=== PATIENT | male | born 1950 | race Caucasian/White ===

== ENCOUNTER 2017-07-25 19:55 | Emergency (ER) | payer MEDICARE, OTHER ==
[2017-07-25] MEDS ORDERED: GLUCAGON,HUMAN RECOMB 1 MG INJ IV ONE (20:11)
--- NOTE | 2017-07-25 23:50 | RADIOLOGY REPORT (SQ) ---
EXAM DESCRIPTION: BARIUM SWALLOW ESOPHAGUS COMPLETED DATE/TIME: 07/25/2017 11:22 pm REASON FOR STUDY: foreign body COMPARISON: None. TECHNIQUE: Under fluoroscopic guidance, patient ingested thin barium. Fluoroscopic spot images and r outine radiographic images acquired and stored on PACS. 12 MM BARIUM TABLET GIVEN: Yes. No significant delay in passage. LIMITATIONS: None. FLUOROSCOPY TIME: 56 seconds 6 images saved to PACS. FINDINGS: NEUROMUSCULAR COORDINATION OF SWALLOW: Normal. No aspiration. ESOPHAGEAL MOTILITY: Normal peristalsis. No esophageal spasm. ESOPHAGEAL MUCOSA: Normal mucosa without masses or ulceration. GASTRO-ESOPHAGEAL JUNCTION: Moderate hiatal hernia with moderate reflux. NON-GI TRACT STRUCTURES: Cervical hardware. OTHER: No other significant finding. IMPRESSION: Moderate hiatal hernia with moderate reflux. No foreign body was identified COMMENT: Quality ID [id number]: Final reports for procedures using fluoroscopy that document radiation exp osure indices, or exposure time and number of fluorographic images (if radiation exposure indices are not available) TECHNICAL DOCUMENTATION: JOB ID: [id number] NC-62 2010 [employer]- All Rights Reserved
--- NOTE | 2017-07-25 23:58 | ER Document Report ---
ED General - General Chief Complaint: Foreign Body Stated Complaint: FOREIGN OBJECT IN THROAT Time Seen by Provider: 07/25/17 20:11 Mode of Arrival: Ambulatory Information source: Patient Notes: 67-year-old male presents with concerns of foreign body in his esophagus. Patient notes he was eating apple and thinks that may have gotten stuck. He is not having any difficulty breathing, he is not having any difficulty swallowing , patient is not spitting up, he is already on omeprazole TRAVEL OUTSIDE OF THE [place] IN LAST 30 DAYS: No - HPI Onset: Just prior to arrival Onset/Duration: Sudden Quality of pain: No pain Severity: Mild Pain Level: Denies Associated symptoms: Other Exacerbated by: Denies Relieved by: Denies Similar symptoms previously: No Recently seen / treated by doctor: No - Related Data Allergies/Adverse Reactions: Sulfa (Sulfonamide Antibiotics) Allergy (Intermediate, Verified 07/25/17 20:02) VOMITING, RASH oxycodone HCl [From OxyContin] Adverse Reaction (Intermediate, Verified 20:02) Confusion Past Medical History - Social History Smoking Status: Never Smoker Cigarette use (# per day): No Chew tobacco use (# tins/day): No Smoking Education Provided: No Family History: Reviewed & Not Pertinent Patient has suicidal ideation: No Patient has homicidal ideation: No - Past Medical History Cardiac Medical History: Reports: Hx Hypertension Pulmonary Medical History: Reports: Hx Asthma Renal/ Medical History: Reports: Hx Kidney Stones - chronic. Denies: Hx Peritoneal Dialysis GI Medical History: Reports: Hx Gastroesophageal Reflux Disease Past Surgical History: Reports: Hx Abdominal Surgery - hernia repair, Hx Orthopedic Surgery - spinal fusion - Immunizations Hx Diphtheria, Pertussis, Tetanus Vaccination: Yes Review of Systems - Review of Systems Notes: REVIEW OF SYSTEMS: CONSTITUTIONAL : Denies fever, chills, or sweats. Denies recent illness. EENT: Admits to difficulty swallowing. CARDIOVASCULAR: Denies chest pain. Denies palpitations or racing or irregular heart beat. Denies ankle edema. RESPIRATORY: Denies cough, cold, or chest congestion. Denies shortness of breath, difficulty breathing, or wheezing. GASTROINTESTINAL: Denies abdominal pain or distention. Denies nausea, vomiting , or diarrhea. Denies blood in vomitus, stools, or per rectum. Denies black, tarry stools. Denies constipation. GENITOURINARY: Denies difficulty urinating, painful urination, burning, frequency, blood in urine, or discharge. MUSCULOSKELETAL: Denies back or neck pain or stiffness. Denies joint pain or swelling. SKIN: Denies rash, lesions or sores. HEMATOLOGIC : Denies easy bruising or bleeding. LYMPHATIC: Denies swollen, enlarged glands. NEUROLOGICAL: Denies confusion or altered mental status. Denies passing out or loss of consciousness. Denies dizziness or lightheadedness. Denies headache. Denies weakness or paralysis or loss of use of either side. Denies problems with gait or speech. Denies sensory loss, numbness, or tingling. Denies seizures. PSYCHIATRIC: Denies anxiety or stress. Denies depression, suicidal ideation, or homicidal ideation. ALL OTHER SYSTEMS REVIEWED AND NEGATIVE. Dictation was performed using [employer] recognition software PHYSICAL EXAMINATION: GENERAL: Well-appearing, well-nourished and in no acute distress. HEAD: Atraumatic, normocephalic. EYES: Pupils equal round and reactive to light, extraocular movements intact, sclera anicteric, conjunctiva are normal. ENT: Nares patent, oropharynx clear without exudates. Moist mucous membranes. NECK: Normal range of motion, supple without lymphadenopathy LUNGS: Breath sounds clear to auscultation bilaterally and equal. No wheezes rales or rhonchi. HEART: Regular rate and rhythm without murmurs ABDOMEN: Soft, nontender, nondistended abdomen. No guarding, no rebound. No masses appreciated. Musculoskeletal: Normal range of motion, no pitting or edema. No cyanosis. NEUROLOGICAL: Cranial nerves grossly intact. Normal speech, normal gait. Normal sensory, motor exams PSYCH: Normal mood, normal affect. SKIN: Warm, Dry, normal turgor, no rashes or lesions noted. Physical Exam - Vital signs Vitals: Temp Pulse Resp BP Pulse Ox 98.1 F 98 20 147/84 H 96 07/25/17 20:02 07/25/17 20:02 07/25/17 20:02 07/25/17 20:02 07/25/17 20:02 Course - Re-evaluation Re-evalutation: 07/26/17 00:02 Patient overall has been in no distress upon arrival, he is not having any signs of an obstruction, I did attempt initial cooking chin, and soda, patient still has that sensation, therefore a barium swallow study was performed and no foreign bodies noted. Moderate reflux with a hiatal hernia is noted. Family already knows about the hiatal hernia. Given that there is no obstruction is no foreign body I believe that the symptoms may be just irritation, patient will be placed on Pepcid in addition to his omeprazole and has been instructed to follow with the GI specialist for further evaluation and care. Patient has been told to return immediately if there are any other concerns he states he agrees and is happy with this plan After performing a Medical Screening Examination, I estimate there is LOW risk for CENTRAL CORD SYNDROME, EPIDURAL MASS LESION, SEVERE SPINAL STENOSIS, ARTERIAL DISSECTION, MENINGITIS, or ACUTE CORONARY SYNDROME, thus I consider the discharge disposition reasonable. I have reevaluated this patient multiple times and no significant life threatening changes are noted. The patient and I have discussed the diagnosis and risks, and we agree with discharging home to follow-up on an outpatient basis with the understanding that symptoms and presentations can change. We also discussed returning to the Emergency Department immediately if new or worsening symptoms occur. We have discussed the symptoms which are most concerning (e.g., saddle anesthesia, urinary or bowel incontinence or retention, changing or worsening pain) that necessitate immediate return. - Vital Signs Vital signs: Temp Pulse Resp BP Pulse Ox 98.1 F 98 20 147/84 H 96 07/25/17 20:02 07/25/17 20:02 07/25/17 20:02 07/25/17 20:02 07/25/17 20:02 Discharge - Discharge Clinical Impression: Esophageal abnormality Condition: Stable Disposition: HOME, SELF-CARE Instructions: Esophageal Food Impaction ([facility]) Additional Instructions: Please follow-up with your GI specialist for further evaluation and care return immediately if there is any difficulty swallowing or any other concerns at all Prescriptions: Famotidine [Pepcid 40 mg Tablet] 40 mg PO DAILY #30 tablet Referrals: JAKOB HERNANDEZ MD [Primary Care Provider] - Follow up as needed
[2017-07-26 00:16] VITALS: BP 142/78
== END 2017-07-26 00:12 | disposition home or self-care (01) ==
LOC: ER 19:55
DX: K22.9 Disease of esophagus, unspecified (principal); T17.228A Food in pharynx causing other injury, initial encounter; X58.XXXA Exposure to other specified factors, initial encounter; Z79.899 Other long term (current) drug therapy
CPT/HCPCS: 99283; 96374; 74220; J1610

== ENCOUNTER 2017-12-20 20:10 | Emergency (ER) | payer MEDICARE, OTHER ==
--- NOTE | 2017-12-20 21:14 | ER Document Report ---
ED General - General Chief Complaint: Chest Pain Stated Complaint: COUGH,CHEST PAIN Time Seen by Provider: 12/20/17 21:02 Notes: Patient presents with 3 days of mild productive cough that is white phlegm for the last 3 days. He went to urgent care yesterday and had an states that he has been coughing excessively and it hurts midsternal whenever he coughs but otherwise denies any chest pain at this time or shortness of breath. Denies any leg swelling or problems with lying down flat while sleeping. Denies any fevers at this time. He is not on any immunomodulators. TRAVEL OUTSIDE OF THE [place] IN LAST 30 DAYS: No - Related Data Allergies/Adverse Reactions: Sulfa (Sulfonamide Antibiotics) Allergy (Intermediate, Verified 12/20/17 20:10) VOMITING, RASH oxycodone HCl [From OxyContin] Adverse Reaction (Intermediate, Verified 20:10) Confusion Past Medical History - Social History Smoking Status: Never Smoker Family History: Reviewed & Not Pertinent - Past Medical History Cardiac Medical History: Reports: Hx Hypertension Pulmonary Medical History: Reports: Hx Asthma Renal/ Medical History: Reports: Hx Kidney Stones - chronic. Denies: Hx Peritoneal Dialysis GI Medical History: Reports: Hx Gastroesophageal Reflux Disease Past Surgical History: Reports: Hx Abdominal Surgery - hernia repair, Hx Orthopedic Surgery - spinal fusion - Immunizations Hx Diphtheria, Pertussis, Tetanus Vaccination: Yes Review of Systems - Review of Systems Constitutional: No symptoms reported EENT: No symptoms reported Cardiovascular: No symptoms reported Respiratory: See HPI, Cough, Sputum, Wheezing Gastrointestinal: No symptoms reported Genitourinary: No symptoms reported Male Genitourinary: No symptoms reported Musculoskeletal: No symptoms reported Skin: No symptoms reported Hematologic/Lymphatic: No symptoms reported Neurological/Psychological: No symptoms reported Physical Exam - Vital signs Vitals: Temp Pulse Resp BP Pulse Ox 98.2 F 100 16 142/90 H 96 12/20/17 20:36 12/20/17 20:36 12/20/17 20:36 12/20/17 20:36 12/20/17 20:36 - General General appearance: Appears well, Alert - HEENT Head: Normocephalic, Atraumatic - Respiratory Respiratory status: No respiratory distress Chest status: Nontender Breath sounds: Normal Chest palpation: Normal - Cardiovascular Rhythm: Regular Heart sounds: Normal auscultation Course - Re-evaluation Re-evalutation: 12/20/17 23:20 Patient well-appearing in no acute distress. Labs within normal limits are nonsignificant with no acute findings on chest x-ray. Patient signs and symptoms consistent with bronchitis. Will provide 5 day steroid Dosepak as well as albuterol puffer with return precautions provided - Vital Signs Vital signs: Temp Pulse Resp BP Pulse Ox 98.2 F 100 23 H 131/83 H 96 12/20/17 20:36 12/20/17 20:36 12/20/17 23:01 12/20/17 23:01 12/20/17 23:01 - Laboratory Result Diagrams: 12/20/17 21:08 12/20/17 21:08 Laboratory results interpreted by me: 12/20/17 12/20/17 21:08 21:08 Monocytes % 18.1 H Creatinine 1.36 H Est GFR (Non-Af Amer) 52 L ALT 20 L - Diagnostic Test Radiology reviewed: Reports reviewed - EKG Interpretation by Me EKG shows normal: Sinus rhythm Rate: Normal Rhythm: NSR Discharge - Discharge Clinical Impression: Bronchitis Condition: Good Disposition: HOME, SELF-CARE Instructions: Bronchitis ([facility]) Additional Instructions: Please use albuterol puffer provided 2 puffs every 4 hours for the next 2 days and then 2 puffs every 4 hours as needed thereafter. Please return to the ED for any concerns or if development of any fevers or worsening of symptoms Prescriptions: Guaifenesin/Dextromethorphan [Cough & Chest Congest Dm Liq] 177 ml PO TID PRN # 1 bottle PRN Reason: Prednisone [Deltasone 20 mg Tablet] 2 tab PO DAILY 5 Days #10 tablet Referrals: JAKOB HERNANDEZ MD [Primary Care Provider] - Follow up as needed Scribe Attestation: 12/21/17 11:27 I personally performed the services described in the documentation, reviewed and edited the documentation which was dictated to the scribe in my presence, and it accurately records my words and actions.
[2017-12-20 21:21] LABS: ABSOLUTE BASOPHILS # (AUTO) 0.1 10^3/uL (0.0-0.2); ABSOLUTE EOSINOPHILS # (AUTO) 0.2 10^3/uL (0.0-0.6); ABSOLUTE LYMPHOCYTES (AUTO) 1.1 10^3/uL (0.5-4.7); ABSOLUTE NEUT (AUTO) 3.1 10^3/uL (1.7-8.2); BASOPHILS % (AUTO) 1.2 % (0-2); EOSINOPHILS % (AUTO) 4.4 % (0-6); HEMATOCRIT 45.9 % (37.9-51.0); HEMOGLOBIN 15.9 g/dL (13.5-17.0); LYMPHOCYTES % (AUTO) 20.1 % (13-45); MEAN CORPUSCULAR HEMOGLOBIN 30.6 pg (27.0-33.4); MEAN CORPUSCULAR HGB CONC 34.7 g/dL (32.0-36.0); MEAN CORPUSCULAR VOLUME 88 fl (80-97); MONOCYTES % (AUTO) 18.1 % (3-13); PLATELET COUNT 177 10^3/uL (150-450); RED CELL DISTRIBUTION WIDTH 13.7 % (11.5-14.0); SEGMENTED NEUTROPHILS % (AUTO) 56.2 % (42-78); TOTAL CELLS COUNTED % (AUTO) 100 %; WHITE BLOOD COUNT 5.5 10^3/uL (4.0-10.5)
[2017-12-20 21:26] LABS: INTERNATIONAL RATION (INR) 0.92; PROTHROMBIN TIME 12.8 SEC (11.4-15.4)
[2017-12-20 21:40] LABS: ALANINE AMINOTRANSFERASE 20 U/L (21-72); ALKALINE PHOSPHATASE 75 U/L (38-126); ANION GAP 12 (5-19); ASPARTATE AMINO TRANSFERASE 31 U/L (17-59); BILIRUBIN,DIRECT 0.4 mg/dL (0.0-0.4); BILIRUBIN,TOTAL 0.7 mg/dL (0.2-1.3); BLOOD UREA NITROGEN 18 mg/dL (7-20); CALCIUM 9.3 mg/dL (8.4-10.2); CARBON DIOXIDE 28 mmol/L (22-30); CHLORIDE 104 mmol/L (98-107); GLUCOSE 96 mg/dL (75-110); POTASSIUM 4.3 mmol/L (3.6-5.0); TOTAL PROTEIN 6.7 g/dL (6.3-8.2)
[2017-12-20 21:48] LABS: NT PRO BNP 26 pg/mL (5-900)
[2017-12-20 21:52] LABS: TROPONIN I < 0.012 ng/mL
--- NOTE | 2017-12-20 23:06 | RADIOLOGY REPORT (SQ) ---
EXAM DESCRIPTION: CHEST 2 VIEWS COMPLETED DATE/TIME: 12/20/2017 10:42 pm REASON FOR STUDY: cough/chest pain COMPARISON: None. TECHNIQUE: Frontal and lateral radiographic views of the chest acquired. NUMBER OF VIEWS: Two view. LIMITATIONS: None. FINDINGS: LUNGS AND PLEURA: No opacities, masses or pneumothorax. No pleural effusion. MEDIASTINUM AND HILAR STRUCTURES: No masses or contour abnormalities. HEART AND VASCULAR STRUCTURES: Heart normal size. No evidence for failure. BONES: No acute findings. HARDWARE: None in the chest. OTHER: No other significant finding. IMPRESSION: NO SIGNIFICANT RADIOGRAPHIC FINDING IN THE CHEST. TECHNICAL DOCUMENTATION: JOB ID: [id number] [employer]- All Rights Reserved Reading location - IP/workstation name: [email or web address]
[2017-12-20 23:12] VITALS: BP 131/83
[2017-12-20] MEDS ORDERED: ALBUTEROL SULFATE HFA (90 MCG/PUFF) 8 GM MDI (1 MDI/ER DISP) IH PRN (23:19)
--- NOTE | 2017-12-21 09:43 | EKG REPORT ---
SEVERITY:- OTHERWISE NORMAL ECG - SINUS TACHYCARDIA BORDERLINE LEFT AXIS DEVIATION : Confirmed by: Stacy Varner 21-Dec-2017 09:42:09
== END 2017-12-20 23:45 | disposition home or self-care (01) ==
LOC: ER 20:10
DX: J45.909 Unspecified asthma, uncomplicated (principal); R07.9 Chest pain, unspecified; R05 Cough; I10 Essential (primary) hypertension
CPT/HCPCS: 93005; 99285; 36415; 83735; 85025; 85610; 80053; 84484; 83880; 71046; 93010; J3490